=== PATIENT | male | born 1975 | race Hispanic/Latino ===

== ENCOUNTER 2018-06-07 04:57 | Emergency (ER) | payer MEDICARE ==
[2018-06-07 05:09] VITALS: BP 129/83; PULSE 91; RESP 18; TEMP 98.5; O2SAT 97
--- NOTE | 2018-06-07 06:56 | ED PDOC ---
Lower Extremity Pain/Injury Time Seen by Provider: 06/07/18 06:24 Chief Complaint (Nursing): Lower Extremity Problem/Injury Chief Complaint (Provider): Lower Extremity Problem/Injury History Per: Patient History/Exam Limitations: no limitations Onset/Duration Of Symptoms: Hrs Current Symptoms Are (Timing): Still Present Additional Complaint(s): Garth Giron is a 42 year old male with a past medical history of diabetes and neuropathy, who is presenting to the ED with complaints of right foot pain onset yesterday afternoon s/p kicking a soccer ball. Patient states that at the time he did not feel the pain but around 2 am this morning the discomfort and the pain increased. He states that he iced his right foot and reports no other medical complaints at this time. 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 - Family History Family History: States: Unknown Family Hx - Social History Current smoker - smoking cessation education provided: No Alcohol: None Drugs: Denies - Allergies Allergies/Adverse Reactions: Allergies Allergy/AdvReac Type Severity Reaction Status Date / Time lidocaine AdvReac DIZZINESS Verified 06/07/18 05:05 Review of Systems ROS Statement: Except As Marked, All Systems Reviewed And Found Negative Musculoskeletal: Positive for: Foot Pain (right) Physical Exam - Reviewed Nursing Documentation Reviewed: Yes Vital Signs Reviewed: Yes - Physical Exam Appears: Positive for: Non-toxic, No Acute Distress Head Exam: Positive for: ATRAUMATIC, NORMAL INSPECTION, NORMOCEPHALIC Extremity: Positive for: Normal ROM, Other (erythema to right second toe and metatarsal area). Negative for: Deformity, Swelling Neurologic/Psych: Positive for: Alert, Oriented. Negative for: Motor/Sensory Deficits - ECG O2 Sat by Pulse Oximetry: 97 (RA) Pulse Ox Interpretation: Normal Medical Decision Making Medical Decision Making: Time: 6:44 Impression: foot injury, rule out fracture vs dislocation Plan: --X-Ray right foot Scribe Attestation: Documented by, Phyllis Flores acting as a scribe for Perla Younger MD. Provider Scribe Attestation: All medical record entries made by the Scribe were at my direction and personally dictated by me. I have reviewed the chart and agree that the record accurately reflects my personal performance of the history, physical exam, medical decision making, and the department course for this patient. I have also personally directed, reviewed, and agree with the discharge instructions and disposition. Disposition - Clinical Impression Clinical Impression: Toe sprain - Patient ED Disposition Is Patient to be Admitted: Transfer of Care Counseled Patient/Family Regarding: Studies Performed, Diagnosis - Disposition Referrals: Garrison Brooks DPM [Family Provider] - Disposition: Transfer of Care Disposition Time: 07:00 Condition: GOOD Instructions: Toe Injury
--- NOTE | 2018-06-07 09:32 | ED PDOC ---
- ECG O2 Sat by Pulse Oximetry: 97 (RA) Disposition - Clinical Impression Clinical Impression: Toe sprain - POA Present On Arrival: None - Disposition Referrals: Garrison Brooks DPM [Family Provider] - Disposition: Routine/Home Disposition Time: 09:31 Condition: FAIR Instructions: Toe Injury Forms: [facility] (Indonesian)
--- NOTE | 2018-06-07 10:16 | CP.PCM.CON ---
History of Present Illness - History of Present Illness History of Present Illness: Podiatry consult note for attending Cecilia Harrison 42 y/o M patient seen and evaluated at the bedside for pain and redness secondary to right 2nd digit trauma. Patient is AAO X 3 and not in acute distress. Patient is setting comfortably in be. Patient states that yesterday he was playing soccer with his son in the afternoon, 12 hours later he took his shoe off and found an area of redness at the base of the 2nd toe and the toe looks drifted laterally. Patient states that he felt pain at his toe about 4/10 on VAS scale. Patient states that the redness increased so he came to the ED. Patient denies any other pedal complaint. Patient denies any F/N/V/C or SOB recently. PMH: Type I DM, Diabetic neuropathy, Kidney transplant PSH: Renal transplant Allergies: Lidocaine. Review of Systems - Review of Systems Review of Systems: As Per HPI Past Patient History - Past Social History Alcohol: None Drugs: Denies - ENDOCRINE/METABOLIC Hx Diabetes Mellitus Type 2: Yes - PSYCHIATRIC Hx Substance Use: No Meds Allergies/Adverse Reactions: Allergies Allergy/AdvReac Type Severity Reaction Status Date / Time lidocaine AdvReac DIZZINESS Verified 06/07/18 05:05 Physical Exam - Constitutional Appears: Well, Non-toxic, No Acute Distress - Head Exam Head Exam: ATRAUMATIC, NORMOCEPHALIC - Extremities Exam Additional comments: Lower extremity focused exam: Vasc: DP/PT 2/4 B/L. Cap refill < 3 sec in all digits. Temp gradient warm to cool. No edema or varicosities. Neuro: Protective sensation grossly diminished [place] test 3/3 B/L. Gross sensation intact. Derm: No open lesions, No clinical signs of active bacterial infection. Erythema noted in the dorsum of the right foot at the level of the 2nd MPJ and extending distally to the 2nd digit. MSK: Moderate pain on palpating the 2nd right toe. intact passive and active ROM of all the digits. Pain when dorsiflexing the right 2nd digit against resistance - Neurological Exam Neurological exam: Alert, Oriented x3 - Psychiatric Exam Psychiatric exam: Normal Affect, Normal Mood Results - Vital Signs Recent Vital Signs: Last Vital Signs Temp 98.5 F 06/07/18 05:05 Pulse 91 H 07/08/18 05:05 Resp 18 06/07/18 05:05 BP 129/83 06/07/18 05:05 Pulse Ox 97 06/07/18 09:31 Assessment & Plan - Assessment and Plan (Free Text) Assessment: 42 Y/O M patient seen and evaluated at the ED for pain 2ry to trauma to his right 2nd digit. Plan: Patient seen and evaluated at the bedside. Plan discussed in details with attending Cecilia Harrison X-ray reviewed and it shows minimal lateral displacement of the right 2nd digit. X-ray result discussed with the patient. 2nd digit dressed using 4x4 gauze and kerlix. Surgical shoe dispensed to the patient. Patient instructed to use the surgical shoe as long as he is standing or walking. Patient instructed to elevate his foot. Patient instructed to use the allowed pain medication by his physician if he feels pain. Patient expressed verbal understanding. Patient to F/U with Cecilia Harrison at his clinic. - Date & Time Date: 06/07/18 Time: 10:24
--- NOTE | 2018-06-07 11:11 | RAD ---
PROCEDURE: Right Foot Radiographs. HISTORY: toe injury pain COMPARISON: None. FINDINGS: BONES: Tiny ossific densities along the medial aspects of the distal portions of the 2nd proximal and middle phalanges. JOINTS: Normal. SOFT TISSUES: Normal. OTHER FINDINGS: None. IMPRESSION: Nonspecific tiny ossific densities along the medial aspects of the distal portions of the 2nd proximal and middle phalanges for which avulsion/chip fractures cannot be excluded. ER notification submitted electronically.
== END 2018-06-07 09:39 | disposition home or self-care (01) ==
LOC: H.ER 04:57
DX: S93.501A Unspecified sprain of right great toe, initial encounter (principal); Y93.66 Activity, soccer; E11.9 Type 2 diabetes mellitus without complications; Z94.0 Kidney transplant status